=== PATIENT | female | born 1960 | race Caucasian/White ===

== ENCOUNTER 2017-12-20 07:48 | Emergency (ER) | payer BC ==
[~2017-12-20] VITALS: Ht 149.9 cm; Wt 76.4 kg
[~2017-12-20 07:48] MED LIST: ANTIVERT OR; DOXYCYC MONO100 M1 PO; IRON325 MG PO; NEXIUM40 M1 OR; PROMETHAZINE25 MG OR; ZOFRAN ODT4 MG PO
[2017-12-20 08:28] LABS: URINE BILIRUBIN - DIPSTICK NEGATIVE (NEGATIVE); URINE BLOOD DIPSTICK NEGATIVE (NEGATIVE); URINE CLARITY CLEAR; URINE COLOR YELLOW; URINE GLUCOSE - DIPSTICK NEGATIVE (NEGATIVE); URINE KETONE NEGATIVE (NEGATIVE); URINE LEUK ESTERASE NEGATIVE (NEGATIVE); URINE NITRITE - DIPSTICK NEGATIVE (Negative); URINE PH 5.5 (4.5-8.0); URINE PROTEIN - DIPSTICK NEGATIVE (NEG-TRACE); URINE SPECIFIC GRAVITY >=1.030; URINE UROBILINOGEN - DIPSTICK 0.2 E.U./dL (0.2)
[2017-12-20 08:45] LABS: HEMATOCRIT 43.5 % (37.0-47.0); HEMOGLOBIN 14.4 g/dl (12.0-16.0); IMMATURE GRANULOCYTES 0.6 % (0.0-1.0); MEAN CORPUSCULAR HGB 28.8 pG CALC (26.0-32.0); MEAN CORPUSCULAR HGB CONC 33.1 g/L CALC (32.0-36.0); NEUT# 8.4 thou/uL (2.00-7.15); RED CELL DISTRI WIDTH 13.1 % (11.5-15.5)
[2017-12-20 09:05] LABS: ALBUMIN 3.7 g/dL (3.2-5.0); ALKALINE PHOSPHATASE 94 u/l (38-126); ANION GAP 13 (6-22 (CALC)); BILIRUBIN, TOTAL 0.9 mg/dL (0.0-1.4); BUN 24 mg/dL (7-17); BUN/CREATININE RATIO 29 (12-20 (CALC)); CARBON DIOXIDE 23 mmol/l (22-30); CHLORIDE 106 mmol/l (95-108); CREATININE 0.8 mg/dL (0.5-1.0); GFR > 60 ML/MIN (>=60 (CALC)); GFR FOR AFR.AMER. > 60 ML/MIN (>=60 (CALC)); POTASSIUM 4.3 mmol/l (3.5-5.1); SGOT/AST 16 u/l (14-36); SGPT/ALT 24 u/l (9-52); SODIUM 138 mmol/l (137-146)
[2017-12-20] MEDS ORDERED: PYRIDIUM200 MG PO (09:14)
[2017-12-20] MEDS ORDERED: BACTRIM DS1 TAB PO (09:14)
[2017-12-20] MEDS ORDERED: TORADOL PO (09:14)
[2017-12-20 09:36] VITALS: BP 118/69
== END 2017-12-20 09:50 | disposition home or self-care (01) | DRG 690 ==
LOC: ED 07:48
PROVIDERS: Emergency Medicine
DX: N34.2 Other urethritis (principal); H92.03 Otalgia, bilateral; M54.5 Low back pain; R10.31 Right lower quadrant pain; R11.0 Nausea; R30.0 Dysuria; R35.0 Frequency of micturition

== ENCOUNTER 2019-01-04 02:32 | Emergency (ER) | payer BC ==
[~2019-01-04] VITALS: Ht 149.9 cm; Wt 75.0 kg
[~2019-01-04 02:32] MED LIST changes: +BACTRIM DS1 TAB PO; +PYRIDIUM200 MG PO; +TORADOL PO
[2019-01-04] MEDS ORDERED: DOXYCYC MONO100 M2 PO (02:52)
[2019-01-04 03:58] VITALS: BP 142/77
== END 2019-01-04 03:55 | disposition home or self-care (01) | DRG 605 ==
LOC: ED 02:32
DX: S61.452A Open bite of left hand, initial encounter (principal); R22.32 Localized swelling, mass and lump, left upper limb; W55.01XA Bitten by cat, initial encounter; Y93.89 Activity, other specified; Y92.003 Bedroom of unspecified non-institutional (private) residence as the place of occurrence of the external cause

== ENCOUNTER 2019-05-05 02:45 | Emergency (ER) | payer BC ==
[~2019-05-05] VITALS: Ht 149.9 cm; Wt 77.0 kg
[~2019-05-05 02:45] MED LIST changes: +DOXYCYC MONO100 M2 PO
[2019-05-05] MEDS ORDERED: VOLTAREN - GENE75 MG PO (03:10)
[2019-05-05 03:50] VITALS: BP 139/71
== END 2019-05-05 03:52 | disposition home or self-care (01) | DRG 554 ==
LOC: ED 02:45
DX: M19.022 Primary osteoarthritis, left elbow (principal); M77.9 Enthesopathy, unspecified

== ENCOUNTER 2020-06-02 01:01 | Emergency (ER) | payer BC ==
[~2020-06-02] VITALS: Ht 149.9 cm; Wt 76.0 kg
[~2020-06-02 01:01] MED LIST changes: +VOLTAREN - GENE75 MG PO
[2020-06-02] MEDS ORDERED: VITAMIN D50000 UNIT PO (01:25)
[2020-06-02] MEDS ORDERED: TORADOL PO (01:27)
[2020-06-02 01:40] VITALS: BP 139/77
== END 2020-06-02 01:56 | disposition home or self-care (01) | DRG 563 ==
LOC: ED 01:01
DX: S29.012A Strain of muscle and tendon of back wall of thorax, initial encounter (principal); X50.0XXA Overexertion from strenuous movement or load, initial encounter; Y93.E6 Activity, residential relocation; Y92.009 Unspecified place in unspecified non-institutional (private) residence as the place of occurrence of the external cause